=== PATIENT | female | born 1950 | race Hispanic/Latino ===

== ENCOUNTER 2017-04-13 13:22 | Emergency (ER) | payer MEDICARE, OTHER ==
--- NOTE | 2017-04-13 14:17 | Emergency Department Report ---
Chief Complaint: Abdominal Pain Stated Complaint: CHEST PAIN,RADIATING PAIN Time Seen by Provider: 04/13/17 14:12 - HPI History of Present Illness: PT c/o RUQ abd pain that radiates up to Left neck x 3 days. PT states this am, her pain became worse after eating. - ROS Review of Systems: + abd pain + chest pain + neck pain + nausea - vomiting - dysuria - Exam Physical Exam: obese female, no acute resp distress. abd is soft RUQ ttp MSE screening note: Focused history and physical exam performed. Due to findings the following was ordered: xr, us, ekg, labs ED Disposition for MSE Condition: Stable
--- NOTE | 2017-04-13 14:43 | XRay Report ---
ROUTINE CHEST, TWO VIEWS: HISTORY: chest pain. The trachea, heart, mediastinal contour, lung leslie and bony thorax are unremarkable. IMPRESSION: Unremarkable chest x-ray.
[2017-04-13 14:45] LABS: Basophils % (Auto) 0.8 % (0.0-1.8); Eosinophils % (Auto) 2.2 % (0.0-4.3); Hematocrit 45.2 % (30.3-42.9); Hemoglobin 14.7 gm/dl (10.1-14.3); Mean Corpuscular HGB Conc 33 % (30-34); Mean Corpuscular Hemoglobin 29 pg (28-32); Mean Corpuscular Volume 88 fl (79-97); Platelet Count 298 K/mm3 (140-440); Red Blood Count 5.12 M/mm3 (3.65-5.03); Red Cell Distribution Width 14.9 % (13.2-15.2); White Blood Count 10.3 K/mm3 (4.5-11.0)
[2017-04-13 15:07] LABS: Alanine Aminotransferase 11 units/L (7-56); Albumin 3.9 g/dL (3.9-5); Albumin/Globulin Ratio 0.9 %; Alkaline Phosphatase 95 units/L (35-129); Anion Gap 20 mmol/L; Blood Urea Nitrogen 10 mg/dL (7-17); Calcium 9.2 mg/dL (8.4-10.2); Carbon Dioxide 24 mmol/L (22-30); Glucose 97 mg/dL (65-100); Lipase 39 units/L (13-60); Potassium 4.2 mmol/L (3.6-5.0); Sodium 142 mmol/L (137-145); Total Protein 8.4 g/dL (6.3-8.2)
--- NOTE | 2017-04-13 15:28 | Ultrasound Report ---
RIGHT UPPER QUADRANT ULTRASOUND: HISTORY: Right upper quadrant pain. Technique: Transabdominal ultrasound imaging with Doppler interrogation. FINDINGS: There are multiple small shadowing stones within the gallbladder. No evidence for gallbladder distention, wall thickening or surrounding fluid. The CBD measures 5 mm. The liver is severely echogenic consistent with diffuse fatty infiltration. No osseous focal mass or surface nodularity. Images of the pancreas, right kidney and aorta are within normal limits. No perihepatic ascites. IMPRESSION: Cholelithiasis. No secondary findings of acute cholecystitis. Diffuse fatty infiltration of the liver.
[2017-04-13 16:02] LABS: Bacteria,Urine 1+ /HPF (Negative); Bilirubin,Urine NEG (Negative); Blood,Urine NEG (Negative); Ketones,Urine NEG (Negative); Leukocyte Esterase,Urine NEG (Negative); Mucus,Urine FEW /HPF; Nitrite,Urine NEG (Negative); Protein,Urine <15 mg/dL mg/dL (Negative); Urobilinogen,Urine < 2.0 mg/dL (<2.0); WBC,Urine < 1.0 /HPF (0.0-6.0)
[2017-04-14] MEDS ORDERED: MORPHINE IM ONE ×2 (03:00→03:47)
[2017-04-14] MEDS ORDERED: ZOFRAN ODT PO ONE (03:01)
[2017-04-14] MEDS ORDERED: ZOFRAN ODT ONE (03:11)
[2017-04-14] MEDS ORDERED: TORADOL IM ONE (03:47)
[2017-04-14] MEDS ORDERED: MORPHINE ONE (04:04)
--- NOTE | 2017-04-14 04:54 | Emergency Department Report ---
ED Abdominal Pain HPI - General Chief Complaint: Abdominal Pain Time Seen by Provider: 04/13/17 14:12 Source: patient Mode of arrival: Ambulatory Limitations: No Limitations - History of Present Illness Initial Comments: 67-year-old female presenting to the emergency department complaining of abdominal pain, onset started 2 day prior, pain is located in the right upper quadrant radiates to her chest, and into her neck. Patient states pain is sharp , intermittent, no relaxing or worsening factors. She states pain is accompanied with nausea. Pertinent negatives: Fever/chills, Diaphoresis, vomiting, diarrhea, black or bloody stools MD Complaint: abdominal pain -: Gradual, days(s) (2) Location: RUQ Radiation: chest Severity: severe Severity scale (0 -10): 10 Quality: aching Consistency: intermittent Improves With: nothing Worsens With: nothing Associated Symptoms: nausea. denies: vomiting, diarrhea, constipation, dysuria , hematemesis, melena, hematuria, anorexia - Related Data Home Medications Medication Instructions Recorded Confirmed Last Taken Naproxen [Naprosyn] 250 mg PO Q6H PRN 03/08/14 03/08/14 Unknown Previous Rx's Medication Instructions Recorded Last Taken Type Acetaminophen/Codeine [Tylenol #3] 1 tab PO Q6H PRN #10 tab 03/08/14 Unknown Rx predniSONE [Deltasone] 40 mg PO QDAY #5 tab 03/08/14 Unknown Rx Ibuprofen [Motrin 800 MG tab] 800 mg PO Q8HR PRN #30 tablet 04/14/17 Unknown Rx Ondansetron [Zofran TAB] 4 mg PO Q8HR PRN #20 tablet 04/14/17 Unknown Rx oxyCODONE /ACETAMINOPHEN [Percocet 1 tab PO Q6HR PRN #20 tablet 04/14/17 Unknown Rx 5/325] Allergies Allergy/AdvReac Type Severity Reaction Status Date / Time oxytetracycline Allergy Swelling Verified 04/13/17 14:21 [From Terramycin] oxytetracycline HCl Allergy Swelling Verified 04/13/17 14:21 [From Terramycin] Penicillins Allergy Swelling Verified 04/13/17 14:21 Sulfa (Sulfonamide Allergy Unknown Verified 04/13/17 14:21 Antibiotics) ED Review of Systems ROS: Stated complaint: CHEST PAIN,RADIATING PAIN Other details as noted in HPI Constitutional: denies: chills, fever Eyes: denies: eye pain, eye discharge, vision change ENT: denies: ear pain, throat pain Respiratory: denies: cough, shortness of breath, wheezing Cardiovascular: denies: chest pain, palpitations Endocrine: no symptoms reported Gastrointestinal: abdominal pain. denies: nausea, diarrhea, constipation, hematemesis Genitourinary: denies: urgency, dysuria, discharge Musculoskeletal: denies: back pain, joint swelling, arthralgia Skin: denies: rash, lesions Neurological: denies: headache, weakness, paresthesias Psychiatric: denies: anxiety, depression Hematological/Lymphatic: denies: easy bleeding, easy bruising ED Past Medical Hx - Past Medical History Additional medical history: MVP, lupus, fluid around heart, fibromyaglia - Surgical History Hx Appendectomy: Yes Additional Surgical History: ectopic surg. HYSTERECTOMY. TUMMY TUCK - Social History Smoking Status: Current Every Day Smoker Substance Use Type: Prescribed - Medications Home Medications: Home Medications Medication Instructions Recorded Confirmed Last Taken Type Acetaminophen/Codeine [Tylenol #3] 1 tab PO Q6H PRN #10 tab 03/08/14 Unknown Rx Naproxen [Naprosyn] 250 mg PO Q6H PRN 03/08/14 03/08/14 Unknown History predniSONE [Deltasone] 40 mg PO QDAY #5 tab 03/08/14 Unknown Rx Ibuprofen [Motrin 800 MG tab] 800 mg PO Q8HR PRN #30 tablet 04/14/17 Unknown Rx Ondansetron [Zofran TAB] 4 mg PO Q8HR PRN #20 tablet 04/14/17 Unknown Rx oxyCODONE /ACETAMINOPHEN [Percocet 1 tab PO Q6HR PRN #20 tablet 04/14/17 Unknown Rx 5/325] ED Physical Exam - General Limitations: No Limitations General appearance: alert, in no apparent distress - Head Head exam: Present: atraumatic, normocephalic - Eye Eye exam: Present: normal appearance - ENT ENT exam: Present: mucous membranes moist - Neck Neck exam: Present: normal inspection - Respiratory Respiratory exam: Present: normal lung sounds bilaterally. Absent: respiratory distress - Cardiovascular Cardiovascular Exam: Present: regular rate, normal rhythm. Absent: systolic murmur, diastolic murmur, rubs, gallop - GI/Abdominal GI/Abdominal exam: Present: soft, normal bowel sounds. Absent: tenderness (no Barakat sign) - Extremities Exam Extremities exam: Present: normal inspection - Back Exam Back exam: Present: normal inspection - Neurological Exam Neurological exam: Present: alert, oriented X3 - Psychiatric Psychiatric exam: Present: normal affect, normal mood - Skin Skin exam: Present: warm, dry, intact, normal color. Absent: rash ED Course Vital Signs 04/13/17 04/13/17 04/14/17 14:13 22:36 02:33 Temperature 98.5 F 98.2 F 98.0 F Pulse Rate 74 82 81 Respiratory 20 14 15 Rate Blood Pressure 137/67 148/81 Blood Pressure 162/78 [Right] O2 Sat by Pulse 99 96 94 Oximetry - Reevaluation(s) Reevaluation #1: 04/14/17 03:46 H and states pain medication given in ED has minimally improved her symptoms ED Medical Decision Making - Lab Data Result diagrams: 04/13/17 14:29 04/13/17 14:29 - EKG Data -: EKG Interpreted by [facility] EKG shows normal: sinus rhythm (78), axis, intervals, QRS complexes, ST-T waves Rate: normal - Radiology Data Radiology results: report reviewed - Medical Decision Making 67-year-old female presenting to the emergency room complaining of abdominal pain likely secondary to gallstones. Patient states pain has improved and she is stable to DC home. At low suspicion for ACS, UTI. Patient given return precautions and verbalizes understanding. Patient well-appearing, tolerating po , P abdominal exam soft nontender. Critical Care Time: No Critical care attestation.: If time is entered above; I have spent that time in minutes in the direct care of this critically ill patient, excluding procedure time. ED Disposition Clinical Impression: Gallstone Disposition: DC-01 TO HOME OR SELFCARE Is pt being admited?: No Does the pt Need Aspirin: No Condition: Stable Instructions: Abdominal Pain (ED) Prescriptions: Ibuprofen [Motrin 800 MG tab] 800 mg PO Q8HR PRN #30 tablet PRN Reason: Pain , Severe (7-10) Ondansetron [Zofran TAB] 4 mg PO Q8HR PRN #20 tablet PRN Reason: Nausea And Vomiting oxyCODONE /ACETAMINOPHEN [Percocet 5/325] 1 tab PO Q6HR PRN #20 tablet PRN Reason: Pain Referrals: PRIMARY CARE, [Primary Care Provider] - 2-3 Days JEAN-PIERRE WATKINS MD, PHD [Staff Physician] - 24 Hours SUSAN BLANCHARD MD [Staff Physician] - 2-3 Days Forms: Work/School Release Form(ED)
[2017-04-14] MEDS ORDERED: PERCOCET 5/325 PO ONE (05:01)
[2017-04-14 05:24] VITALS: BP 156/92
== END 2017-04-14 05:23 | disposition home or self-care (01) ==
LOC: ED 13:22
DX: K80.80 Other cholelithiasis without obstruction (principal); F17.200 Nicotine dependence, unspecified, uncomplicated
CPT/HCPCS: 36415; 71020; 76705; 80053; 81001; 83690; 84484; 85025; 93005; 93010; 96372; 99284; J1885; J2270; Q0162